=== PATIENT | female | born 1965 | race Caucasian/White ===

== ENCOUNTER 2016-12-24 06:22 | Emergency (ER) | payer MEDICARE, OTHER | END 2016-12-24 10:38 | disposition home or self-care (01) | LOC: ER 06:22 | DX: R07.89 Other chest pain (principal); M25.512 Pain in left shoulder; R42 Dizziness and giddiness; R05 Cough; J44.9 Chronic obstructive pulmonary disease, unspecified; F17.210 Nicotine dependence, cigarettes, uncomplicated; Z90.49 Acquired absence of other specified parts of digestive tract; Z79.899 Other long term (current) drug therapy | CPT/HCPCS: 36415 ==